=== PATIENT | female | born 1995 | race Caucasian/White ===

== ENCOUNTER 2016-12-26 15:49 | Emergency (ER) | payer OTHER, MEDICAID ==
[~2016-12-26] VITALS: Ht 172.7 cm; Wt 90.7 kg
[~2016-12-26 15:49] MED LIST: MOTRIN100 M1 PO
[2016-12-26 15:57] VITALS: BP 107/71
--- NOTE | 2016-12-26 17:43 | NUR ---
Patient ambulated to bed 08.
--- NOTE | 2016-12-26 17:43 | NUR ---
Dr. Boone evaluating patient at bedside.
--- NOTE | 2016-12-26 18:07 | NUR ---
Patient going to US via wheelchair per tech.
--- NOTE | 2016-12-26 18:20 | NUR ---
PT STILL IN US AT THIS TIME
--- NOTE | 2016-12-26 18:43 | NUR ---
Patient back from US via wheelchair per tech.
--- NOTE | 2016-12-26 18:51 | NUR ---
PATIENT PRESENTS TO ED DUE TO ABDOMINAL PAIN X1 WEEK . PT STATES PER PT SHE WENT TO THE CLINIC FOR CHECK UP AND WAS ADVISED TO COME TO ER FOR FOLLOW UP DUE TO ABDOMINAL PAIN, PER PT NO ABDOMINAL PAIN AT THIS TIME BUT WITH HEADACHE. DENIES N/V/D; SKIN IS PINK/WARM/DRY; AAOX4 WITH EVEN AND STEADY GAIT; LUNGS CLEAR BL; HR EVEN AND REGULAR; PT DENIES ANY FEVER, CP, SOB, OR COUGH AT THIS TIME; PATIENT STATES PAIN OF 5/10 AT THIS TIME; PATIENT POSITIONED FOR COMFORT; HOB ELEVATED; BEDRAILS UP X2; BED DOWN.
--- NOTE | 2016-12-26 18:53 | NUR ---
DR. PERKINS AT BEDSIDE.
[2016-12-26 19:04] VITALS: BP 111/67
--- NOTE | 2016-12-26 19:04 | NUR ---
Patient discharged with v/s stable. Written and verbal after care instructions given and explained. Patient verbalized understanding. Ambulatory with to car. All questions addressed prior to discharge. Advised to follow up with PMD [employer] INFORMATION PROVIDED.
== END 2016-12-26 19:04 | disposition home or self-care (01) ==
LOC: MED 15:49
PROC: BY49ZZZ Ultrasonography of First Trimester, Single Fetus (ICD-10-PCS; principal; 2016-12-26)
DX: O26.891 Other specified pregnancy related conditions, first trimester (principal); Z3A.01 Less than 8 weeks gestation of pregnancy; Z36 Encounter for antenatal screening of mother

== ENCOUNTER 2020-09-27 14:27 | Emergency (ER) | payer OTHER ==
[~2020-09-27] VITALS: Ht 175.3 cm; Wt 90.7 kg
[2020-09-27] MEDS ORDERED: IBUPROFEN 600 MG TAB PO ONE (15:30)
[2020-09-27] MEDS ORDERED: CYCLOBENZAPRINE 10 MG TAB PO ONE (15:30)
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
[2020-09-27] MEDS ORDERED: CYCLOBENZAPRINE 10 MG TAB ONE (16:32)
[2020-09-27] MEDS ORDERED: IBUPROFEN 600 MG TAB ONE (16:32)
--- NOTE | 2020-09-27 17:36 | NUR ---
Patient discharged with v/s stable. Written and verbal after care instructions given and explained. Patient alert, oriented and verbalized understanding of instructions. Ambulatory with steady gait. All questions addressed prior to discharge. ID band removed. Patient advised to follow up with PMD. Rx of motrin, flexeril given. Patient educated on indication of medication including possible reaction and side effects. Opportunity to ask questions provided and answered.
== END 2020-09-27 17:36 | disposition home or self-care (01) ==
LOC: MED 14:27
DX: S80.02XA Contusion of left knee, initial encounter (principal); S40.012A Contusion of left shoulder, initial encounter; V89.2XXA Person injured in unspecified motor-vehicle accident, traffic, initial encounter; Y93.89 Activity, other specified; Y92.89 Other specified places as the place of occurrence of the external cause; Y99.8 Other external cause status
CPT/HCPCS: 73030; 73562; 99284

== ENCOUNTER 2021-03-22 18:58 | Emergency (ER) | payer OTHER ==
[~2021-03-22] VITALS: Ht 175.3 cm; Wt 90.7 kg
[2021-03-22 19:18] VITALS: BP 108/61
--- NOTE | 2021-03-22 19:18 | NUR ---
TO LOBBY A/W BED AMBULATORY
--- NOTE | 2021-03-22 19:28 | NUR ---
PT TAKEN TO XRAY FROM [facility]
[2021-03-22] MEDS ORDERED: IBUP-1801 PO (20:20)
--- NOTE | 2021-03-22 20:24 | NUR ---
AIR AND GEL ANKLE STIRRUP SPLINT APPLIED TO PT R ANKLE. +CSM
[2021-03-22 20:30] VITALS: BP 108/61
--- NOTE | 2021-03-22 20:30 | NUR ---
Patient discharged with v/s stable. Written and verbal after care instructions given and explained. Patient alert, oriented and verbalized understanding of instructions. Ambulatory with steady gait. All questions addressed prior to discharge. ID band removed. Patient advised to follow up with PMD. Rx of IBUPROFEN 800 MG given. Patient educated on indication of medication including possible reaction and side effects. Opportunity to ask questions provided and answered.
== END 2021-03-22 20:30 | disposition home or self-care (01) ==
LOC: MED 18:58
DX: S93.401A Sprain of unspecified ligament of right ankle, initial encounter (principal); J45.909 Unspecified asthma, uncomplicated; Z79.899 Other long term (current) drug therapy; W22.8XXA Striking against or struck by other objects, initial encounter; Y93.89 Activity, other specified; Y92.89 Other specified places as the place of occurrence of the external cause; Y99.8 Other external cause status
CPT/HCPCS: 29515; 73610; 99283

== ENCOUNTER 2024-05-19 18:31 | Emergency (ER) | payer SELFPAY ==
[~2024-05-19] VITALS: Ht 175.3 cm; Wt 92.8 kg
[~2024-05-19 18:31] MED LIST changes: +IBUP-1801 PO; -MOTRIN100 M1 PO
[2024-05-19 18:35] VITALS: BP 112/71; PULSE 105; RESP 16; TEMP 97; O2SAT 98
[2024-05-19] MEDS ORDERED: CEPH-588 PO (19:07)
[2024-05-19] MEDS ORDERED: IBUP-2213 PO (19:07)
== END 2024-05-19 19:17 | disposition home or self-care (01) ==
LOC: MED 18:31
DX: L72.3 Sebaceous cyst (principal); L72.0 Epidermal cyst; J45.909 Unspecified asthma, uncomplicated; Z79.1 Long term (current) use of non-steroidal anti-inflammatories (NSAID); Z79.2 Long term (current) use of antibiotics
CPT/HCPCS: 99283